=== PATIENT | female | born 1965 | race Two or more races ===

== ENCOUNTER 2024-05-31 23:06 | Emergency (ER) | payer OTHER ==
[~2024-05-31] VITALS: Ht 160 cm; Wt 99.0 kg
[2024-05-31 23:28] VITALS: BP 186/93; PULSE 95; RESP 30; TEMP 98.6; O2SAT 100
== END 2024-06-01 00:30 | disposition left against medical advice (07) ==
LOC: EMS 23:07
DX: R07.9 Chest pain, unspecified (principal); Z53.21 Procedure and treatment not carried out due to patient leaving prior to being seen by health care provider
CPT/HCPCS: 93005